=== PATIENT | male | born 1990 | race Two or more races ===

== ENCOUNTER 2024-02-11 23:03 | Emergency (ER) | payer SELFPAY ==
[2024-02-11 23:04] VITALS: BP 158/93; PULSE 83; RESP 18; TEMP 36.8; O2SAT 98; BMI 38.7
--- NOTE | 2024-02-11 23:07 | EKG_ITS ---
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
--- NOTE | 2024-02-11 23:24 | XR_ITS ---
Examination: PA lateral chest 2 views Technique: Upright PA lateral chest 2 views Exam date and time: February 11, 2024 11:42 PM Indications: Chest pain beginning one hour ago. Findings: Normal heart size Lungs are clear The osseous structures are intact Impression: No active disease
--- NOTE | 2024-02-11 23:24 | PD.EDRME ---
Rapid Medical Screening Exam RME Arrival date/time: 02/11/24 23:03 33 year old male present to Ed for c/o of chest pain for 1 day I have greeted and performed a focused initial assessment of this patient. A comprehensive ED assessment and evaluation of the patient, analysis of all test results, and completion of the medical decision making process will be conducted by additional ED providers. Chief Complaint: Chest Pain Vital signs: Vital Signs Temperature 98.3 F 02/11/24 23:04 Pulse Rate 83 02/11/24 23:04 Respiratory Rate 18 02/11/24 23:04 Blood Pressure 158/93 H 02/11/24 23:04 Pulse Oximetry (%) 98 02/11/24 23:04 Oxygen Delivery Method Room Air 02/11/24 23:04
[2024-02-12 00:14] LABS: Basophils % (Auto) 0 % (0-2.5); Eosinophils # (Auto) 0.1 Thou/mm3 (0.0-0.5); Eosinophils % (Auto) 1 % (0-10); Hematocrit 44.6 % (41.0-53.0); Hemoglobin 14.4 g/dL (13.5-16.0); Immature Granulocytes % (Auto) 0 % (0-0); Immature Granulocytes Auto 0.03 Thou/mm3 (0.00-0.00); Lymphocytes # (Auto) 3.9 Thou/mm3 (1.0-4.8); Lymphocytes % (Auto) 33 % (10-50); Mean Corpuscular HGB Conc 32.3 g/dl (31.0-37.0); Mean Corpuscular Hemoglobin 26.4 pg (25.0-35.0); Mean Corpuscular Volume 82 fL (80-100); Monocytes # (Auto) 0.8 Thou/mm3 (0.0-0.8); Monocytes % (Auto) 7 % (0-12); Neutrophils % (Auto) 59 % (37-80); Nucleated Red Blood Cell % 0 /100 WBC (0); Platelet Count 321 Thou/mm3 (140-440); RDW Standard Deviation 36.7 fL (35.1-43.9); Red Blood Count 5.46 Miln/mm3 (4.50-5.90); White Blood Count 11.8 Thou/mm3 (3.8-10.6)
[2024-02-12 00:26] LABS: Alanine Aminotransferase 30 U/L (10-49); Albumin, Serum 4.7 gm/dL (3.5-5.0); Albumin/Globulin Ratio 1.5 (1.2-2.2); Alkaline Phosphatase 60 U/L (46-116); Anion Gap 5 (7-16); Aspartate Amino Transferase 21 U/L (0-34); BUN/Creatinine Ratio 15 Ratio (12-20); Bilirubin,Total 0.4 mg/dL (0.3-1.2); Blood Urea Nitrogen 16 mg/dL (9-23); Calcium 10.3 mg/dL (8.3-10.6); Calcium (Corrected) 10.3 mg/dL (8.5-10.1); Carbon Dioxide 28.6 mMol/L (20.0-31.0); Chloride 103 mMol/L (98-107); Creatinine (Component) 1.1 mg/dL (0.6-1.3); Estimated Creatinine Clearance 124.2 mL/min (>60); Globulin 3.1 gm/dL (2.3-3.5); Glucose 94 mg/dL (74-106); Lipase 32 U/L (12-53); Magnesium 1.8 mg/dL (1.6-2.6); Osmolality,Calculated 275 (275-295); Potassium 4.2 mMol/L (3.4-5.1); Sodium 137 mMol/L (136-145); Total Protein 7.8 gm/dL (5.7-8.2); Troponin I < 0.020 ng/mL (0.0-0.045); eGFR > 60 See Note
[2024-02-12 00:54] LABS: Amphetamine/Methamp Scrn,U Negative (Negative); Barbiturate Screen,Urine Negative (Negative); Benzodiazepines Screen,Urine Negative (Negative); Benzoylecgonine Screen, Ur Negative (Negative); Fentanyl Screen,Urine Negative (Negative); Opiate Screen,Urine Negative (Negative); THC Screen,Urine Negative (Negative)
--- NOTE | 2024-02-12 01:37 | PD.EDCHEST ---
ED Chest Pain RME/HPI General Chief Complaint: Chest Pain Stated Complaint: LEFT SIDED CHEST PAIN X1HR Time Seen by Provider: 02/12/24 01:37 Arrival date/time: 02/11/24 23:03 33 year old male with past medical history of HTN present to emergency room with c/o of chest pain 1 hour ago LOCATION: Chest SEVERITY: Symptoms are described as being severe with limitations on activities of daily living CONTEXT: The patient is unable to identify any inciting events. DURATION/TIMING: The symptoms started approximately 1 hour ago ASSOCIATED SYMPTOMS: The patient is unable to identify any other associated symptoms. MODIFYING FACTORS: The patient is unable to identify any alleviating or aggravating symptoms. PERTINENT ROS: no fevers, no cough, no pleuritic pain, no ripping or tearing sensations, denies any lower extremity edema and no unilateral swelling, no shortness of breath no nausea,vomiting, diarrhea, no dizziness/headache no rash no loc/syncope episode no abd/back pain no dsyuria,urgency,frequency REVIEW OF SYSTEMS: See History of Present Illness - with the exception of those mentioned in the history of present illness, all other systems reviewed and reported as negative GENERAL: In general the patient is awake, interactive, in an emergency department gurney. HEAD/EYES/EARS/NOSE/THROAT: normo-cephalic, atraumatic, mucus membranes are moist, anicteric, palpebral conjunctiva is pink, trachea is midline. CARDIOVASCULAR: regular rate and regular rhythm, no murmurs, heart sounds are not distant, strong pulses in all four extremities that are equal and symmetric bilateral upper and lower extremities, normal capillary refill. CHEST/PULMONARY: normal chest rise and fall, good air movement, clear to auscultation bilaterally, normal inspiratory to expiratory ratios without evidence of respiratory distress. NECK: No midline/Paraspinal tenderness, no step off ROM/Strenght intact No Kernig and bruzinski sign. No trauma ABDOMEN: soft, not tender, no masses appreciated BACK: normal range of motion without pain. NEUROLOGICAL: cranio-facial features are symmetric, moves all four extremities equally without obvious limitations or weakness. EXTREMITY: no tenderness to palpation over the long bones or large joints of the bilateral upper and lower extremities, no joint swelling, no joint erythema, no signs of trauma, no unilateral leg swelling and no peripheral edema. SKIN: warm, dry, well-perfused, no jaundice, no rash, no telangiectasias or petechia. PSYCH: calm, cooperative, no evidence of psychosis or agitation RME / HPI RME / HPI narrative: 02/11/24 23:03 33 year old male present to Ed for c/o of chest pain for 1 day I have greeted and performed a focused initial assessment of this patient. A comprehensive ED assessment and evaluation of the patient, analysis of all test results, and completion of the medical decision making process will be conducted by additional ED providers. Related Data Home Medications ?Medication ?Instructions ?Recorded ?Confirmed lansoprazole 30 mg capsule,delayed 30 mg PO QDAY 06/06/19 06/06/19 release lisinopril 20 mg tablet 20 mg PO QDAY 06/06/19 06/06/19 Previous Rx's ?Medication ?Instructions ?Recorded ondansetron 4 mg disintegrating 4 mg PO Q8H #14 tabs 05/07/23 tablet Allergies Allergy/AdvReac Type Severity Reaction Status Date / Time No Known Allergies Allergy Verified 02/11/24 23:06 Course Course Course Narrative: Given History, Exam, and Workup I have low suspicion for ACS, Pneumothorax, Bacterial Pneumonia, Pulmonary Embolus, Tamponade, Aortic Dissection or other emergent problem as a cause for this presentation.? Last Stress Test:? never Last Heart Catheterization:? never HEART Score: 1-2 ? Quality Measures none Orders Category Date Time Status EKG (ED ONLY) *Do not use* NOW Care 02/11/24 23:07 Completed EKG (ED Only) Stat Exams 02/11/24 23:07 Draft XR chest 2V Stat Exams 02/11/24 23:24 Completed CBC Stat Lab 02/11/24 00:02 Completed CMP [Comprehensive Metabolic Panel] Stat Lab 02/11/24 00:02 Completed Drug Screen,Urine Stat Lab 02/11/24 00:00 Completed Lipase Stat Lab 02/11/24 00:02 Completed Mag [Magnesium] Stat Lab 02/11/24 00:02 Completed Troponin I Stat Lab 02/11/24 00:02 Completed Vital Signs Vital signs: Vital Signs Temperature 98.3 F 02/11/24 23:04 Pulse Rate 83 02/11/24 23:04 Respiratory Rate 18 02/11/24 23:04 Blood Pressure 158/93 H 02/11/24 23:04 Pulse Oximetry (%) 98 02/11/24 23:04 Oxygen Delivery Method Room Air 02/11/24 23:04 Procedures -ED EKG Interpretation #1: Date of EK02/12/24 Rate: 76 Interpretation: Reviewed by me EKG Impression: Normal sinus rhythm, No acute ST-T changes, No ectopy and No ischemic changes Chest Pain Patient data External records reviewed:: [facility] previous records Clinical information provided by:: patient Social determinants that could affect healthcare access:: none Patient has the following chronic illnesses:: HTN How is presenting disease/condition affected by chronic disease/condition?: exacerbated by Evaluation data The following diagnostics were reviewed and interpreted by me:: lab results, radiology exam(s) and EKG tracing(s) Lab and/or radiology exams considered but not ordered:: none Interpretation Summary: cxr: nad cbc/cmp/mg/trop within normal limits Medications / Prescriptions Medications or Prescriptions considered but not ordered:: none Medication administrations:: none Consultations Consultation(s) initiated? (list below): No Diagnosis Chest Pain Differential Diagnosis: pneumothorax, stable angina, atypical chest pain, st elevation myocardial infarction, costochondritis, chest pain and biliary colic Most likely diagnosis given after review of the tests above:: chest pain Admission Indicated Admission indicated?: not indicated Admission Request Was there a request for admission?: No Disposition Plan Disposition Plan: Discharge Discharge Attestation Discharge Attestation: The patient and all family members were given an opportunity to ask questions and understood the discharge instructions. Discharge instructions specifically effects, indications for sooner follow up or return to the emergency department, and the expected course of current diagnosis. Patient condition: Stable Discharge Plan Plan Patient Disposition: HOME (Self Care) Health Concerns: Follow with PMD as directed Take tylenol or motrin as need Return to ED if sx worsen Prescriptions/Referrals Prescriptions/Med Rec: No Action lisinopril 20 mg Tablet 20 mg PO QDAY lansoprazole 30 mg Capsule,Delayed Release(Dr/Ec) 30 mg PO QDAY ondansetron 4 mg tablet,disintegrating 4 mg PO Q8H Qty: 14 0RF Referrals: Randolph Upton MD [Primary Care Provider] - In 1 week Problem List Clinical Impression: Chest pain Patient/Caregiver Discharge Instructions Education Materials: ED Chest Pain, Uncertain Cause Print Language: Romanian Stand Alone Forms: Brandie Award Info., Patient Portal Info Letter MD Attestation Attestation The patient was seen by the midlevel practitioner. I, the co-signing physician, was present during the entire ER visit. While I did not physically examine the patient, I was available for consultation as needed.
[2024-02-12 01:44] VITALS: BP 137/64; PULSE 78; RESP 18; TEMP 37.1; O2SAT 99
== END 2024-02-12 01:45 | disposition home or self-care (01) ==
PROVIDERS: Physician Assistant; Emergency Provider Emergency Medicine; PCP Family Medicine
DX: R07.89 Other chest pain (principal); I49.8 Other specified cardiac arrhythmias; I10 Essential (primary) hypertension
CPT/HCPCS: 36415; 71046; 80053; 80307; 83690; 83735; 84484; 85025; 93005; 99283

== ENCOUNTER → 2024-04-23 | Outpatient (CLI) | payer BC, SELFPAY ==
[2024-04-23 13:59] LABS: Collection Type, Urine Clean Catch; Squamous Epithelial Cell,Urine 0 /hpf (0-5)
[2024-04-23 14:21] LABS: Basophils % (Auto) 0 % (0-2.5); Eosinophils % (Auto) 0 % (0-10); Hematocrit 42.9 % (41.0-53.0); Hemoglobin 14.2 g/dL (13.5-16.0); Immature Granulocytes % (Auto) 0 % (0-0); Immature Granulocytes Auto 0.03 Thou/mm3 (0.00-0.00); Lymphocytes # (Auto) 2.4 Thou/mm3 (1.0-4.8); Lymphocytes % (Auto) 27 % (10-50); Mean Corpuscular HGB Conc 33.1 g/dl (31.0-37.0); Mean Corpuscular Hemoglobin 26.5 pg (25.0-35.0); Mean Corpuscular Volume 80 fL (80-100); Monocytes # (Auto) 0.5 Thou/mm3 (0.0-0.8); Monocytes % (Auto) 6 % (0-12); Neutrophils # (Auto) 5.8 Thou/mm3 (1.8-7.7); Neutrophils % (Auto) 66 % (37-80); Nucleated Red Blood Cell % 0 /100 WBC (0); Platelet Count 381 Thou/mm3 (140-440); RDW Standard Deviation 37.2 fL (35.1-43.9); Red Blood Count 5.36 Miln/mm3 (4.50-5.90); White Blood Count 8.8 Thou/mm3 (3.8-10.6)
[2024-04-23 14:24] LABS: Bilirubin,Urine Negative (Negative); Blood,Urine Negative (Negative); Clarity,Urine Clear (Clear/Hazy); Color,Urine Lt-Yellow (Lt Yel-Yel); Glucose, Urine Negative (Negative); Ketones,Urine Negative (Negative); Leukocyte Esterase,Urine Negative (Negative); Nitrite,Urine Negative (Negative); Protein,Urine Negative (Neg - Trace); RBC,Urine 2 /hpf (0-3); Specific Gravity,Urine 1.016 (1.001-1.035); Urobilinogen,Urine Negative mg/dL (0.0-1.0); WBC,Urine < 1 /hpf (0-5)
[2024-04-23 14:31] LABS: Glucose Estimated Average 111 mg/dL (80-131); Hemoglobin A1C 5.5 % Hgb (4.8-6.0)
[2024-04-23 14:37] LABS: Ferritin 170 ng/mL (10.5-307.3)
[2024-04-23 14:48] LABS: Folate 16.83 ng/mL (>5.38); Syphilis Nonreactive (Nonreactive); Vitamin B12 687 pg/mL (211-911); Vitamin D 25 Hydroxy Total 14.6 ng/mL (7.3-40.2)
[2024-04-23 14:54] LABS: Alanine Aminotransferase 33 U/L (10-49); Albumin, Serum 4.7 gm/dL (3.5-5.0); Albumin/Globulin Ratio 1.6 (1.2-2.2); Alkaline Phosphatase 65 U/L (46-116); Anion Gap 7 (7-16); Aspartate Amino Transferase 16 U/L (0-34); BUN/Creatinine Ratio 13 Ratio (12-20); Bilirubin,Total 0.9 mg/dL (0.3-1.2); Blood Urea Nitrogen 13 mg/dL (9-23); Calcium 10.2 mg/dL (8.3-10.6); Calcium (Corrected) 10.2 mg/dL (8.5-10.1); Carbon Dioxide 28.6 mMol/L (20.0-31.0); Cardiac Risk Estimate 4.5 RATIO (4.0-6.7); Chloride 100 mMol/L (98-107); Cholesterol 170 mg/dL (132-200); Free T4 (Free Thyroxine) 1.21 ng/dL (0.89-1.76); Glucose 99 mg/dL (74-106); HDL Cholesterol 38 mg/dL (40-60); LDL Cholesterol,Calculated 101 mg/dL (0-130); Osmolality,Calculated 272 (275-295); Potassium 4.9 mMol/L (3.4-5.1); Sodium 136 mMol/L (136-145); Thyroid Stimulating Hormone 1.09 uIU/mL (0.55-4.78); Total Protein 7.7 gm/dL (5.7-8.2); Triglycerides 154 mg/dL (30-150); eGFR > 60 See Note
[2024-04-23 18:05] LABS: Chlamydia trachomatis PCR Negative (Not Detect); Neisseria Gonorrhoeae DNA PCR Negative (Not Detect); Trichomonas Negative (Negative)
[2024-04-29 06:43] LABS: HIV Ag/Ab, 4th Gen NON-REACTIVE
== END | disposition home or self-care (01) ==
LOC: COPL 13:05
PROVIDERS: PCP Student in an Organized Health Care Education/Training Program; Referring Provider Student in an Organized Health Care Education/Training Program; Visit Provider Student in an Organized Health Care Education/Training Program
DX: Z00.00 Encounter for general adult medical examination without abnormal findings (principal); G47.33 Obstructive sleep apnea (adult) (pediatric); Z11.3 Encounter for screening for infections with a predominantly sexual mode of transmission
CPT/HCPCS: 36415; 80053; 80061; 81001; 82306; 82607; 82728; 82746; 83036; 84439; 84443; 85025; 86780; 87389; 87491; 87591; 87661

== ENCOUNTER 2024-05-19 14:10 | Emergency (ER) | payer BC, SELFPAY ==
[2024-05-19 14:12] VITALS: BMI 38.7
[2024-05-19 14:13] VITALS: BP 136/78; PULSE 98; RESP 18; TEMP 36.6; O2SAT 98
--- NOTE | 2024-05-19 14:16 | EKG_ITS ---
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
--- NOTE | 2024-05-19 14:16 | XR_ITS ---
Examination: AP chest single view Technique one AP portable semiupright chest single view Exam date and time: May 19, 2024 at 1432 hrs. Comparison February 11, 2024 Indications: Onset chest pain today Findings: No significant cardiac enlargement taking into account AP projection The vasculature is mildly prominent No lobar pneumonia or pulmonary edema Impression: Mildly prominent pulmonary vasculature No lobar pneumonia or pulmonary edema
--- NOTE | 2024-05-19 14:18 | EDNOTE_ITS ---
ED General RME/HPI General Chief complaint: Chest Pain Stated complaint: CHEST PAIN Time Seen by Provider: 05/19/24 14:16 Arrival date/time: 05/19/24 14:10 CC: Chest pain HPI left anterior chest onset approximately 1 hour ago denies shortness of breath or difficulty breathing no prior history of similar events E MS state the patient had episode of nausea and vomiting was given 4 mg of Zofran en route, the patient has a history of hypertension and is hypertensive. Patient denies worsening of the symptoms with cough or taking a deep breath. Related Data Home Medications ?Medication ?Instructions ?Recorded ?Confirmed lansoprazole 30 mg capsule,delayed 30 mg PO QDAY 06/0506/06/19 release lisinopril 20 mg tablet 20 mg PO QDAY 06/06/1906/05 Previous Rx's ?Medication ?Instructions ?Recorded ondansetron 4 mg disintegrating 4 mg PO Q8H #14 tabs 0 05/07/23 tablet meloxicam 7.5 mg tablet 7.5 mg PO QDAY #10 tabs 05/04 09/25 Allergies Allergy/AdvReac Type Severity Reaction Status Date / Time No Known Allergies Allergy Verified 02/11/24 23:06 Review of Systems Review of Systems Narrative Review of Systems: GEN: No fever, no chills, no weight loss EYES: No discharge, no visual changes, no pain HEENT: No ear pain, no congestion, no sore throat PULM: No shortness of breath, no cough, no congestion CV: + chest pain, no dyspnea on exertion, no palpitations GI: No nausea, no vomiting, no diarrhea, no pain, no constipation : No frequency, no urgency, no dysuria MUSC/SKEL: No joint pain, no back pain SKIN: No rash PSYCH: No hallucinations, no depression HEME/LYMPH: No easy bleeding or bruising tendencies NEURO: No weakness, no headache Past Medical History Past Medical History CARDIAC: Positive Hypertension; Negative Congestive Heart Failure RESPIRATORY: Negative Chronic Obstructive Pulmonary Disease (COPD) GENITOURINARY: Negative Renal Disease ENDOCRINE: Negative Diabetes Mellitus Type 1 or Diabetes Mellitus Type 2 PSYCHO/SOCIAL: Positive Anxiety Social History SMOKING STATUS: Never smoker ED Exam Narrative Physical exam: [General: Morbidly obese in mild discomfort but not in any acute distress Head normocephalic HEENT: Within acceptable limits Neck is supple nontender Chest equal chest rise, site-specific tenderness to palpation at the costosternal junction midsternal the left side only no other pain reproducible with palpation in any other area of the chest. Respiratory: Clear to auscultation no wheezes crackles or rubs CV: Rate rhythm is regular no murmurs rubs or clicks Abdomen is grossly distended secondary to body habitus soft nontender no masses positive bowel sounds all 4 quadrants Back: No CVA tenderness no spinous process tenderness from cervical spine thoracic and lumbar spine Skin: Intact no petechiae rash induration ulceration or crepitus Extremities: Moving all extremity against resistance cap refill less than 2 seconds neurosensory intact Neuro: Awake alert oriented x3 Glascow coma 15 no focal deficits] Course Course Course Narrative: Chest pain is site-specific and reproducible with palpation. Chest x-ray EKG and troponin are negative patient to be discharged home I suspect is costochondritis. Quality Measures none Orders Category Date Time Status EKG (ED ONLY) *Do not use* NOW Care 05/19/24 14:17 Completed Saline [Insert IV] NOW Care 05/19/24 14:54 Active EKG (ED Only) Stat Exams 05/19/24 14:16 Draft XR chest 1V Stat Exams 05/19/24 14:16 Completed Troponin I Stat Lab 05/19/24 15:00 Completed Ketorolac Inj [Toradol Inj] Med 05/19/24 14:54 Discontinued 30 mg IVP X1 ONE Vital Signs Vital signs: Vital Signs Temperature 97.9 F 05/19/24 14:13 Pulse Rate 98 05/19/24 14:13 Respiratory Rate 18 05/19/24 14:13 Blood Pressure 136/78 H 05/19/24 14:13 Pulse Oximetry (%) 98 05/19/24 14:13 Oxygen Delivery Method Room Air 05/19/24 14:13 [facility] Patient data External records reviewed:: [facility] previous records and EMS form Clinical information provided by:: EMS Social determinants that could affect healthcare access:: none Patient has the following chronic illnesses:: Hypertension obesity How is presenting disease/condition affected by chronic disease/condition?: exacerbated by Evaluation data The following diagnostics were reviewed and interpreted by me:: lab results, radiology exam(s) and EKG tracing(s) Lab and/or radiology exams considered but not ordered:: EKG performed at 1441 shows a ventricular rate of 81 [place] interval 135 QRS of 108 QTc of 407 is normal sinus rhythm nonspecific ST segment changes. No old EKG for comparison. Chest x-ray as interpreted by me read by radiology as negative for any acute finding requires emergent immediate intervention. Interpretation Summary: Costochondritis Medications Medications considered but not ordered:: None Medication administrations:: Medication Administration History Discontinued Medications Ketorolac Tromethamine (Ketorolac Inj 30 Mg/Ml Vial) 30 mg IVP X1 ONE Stop: 05/19/24 14:55 Last Admin: 05/19/24 15:11 Dose: 30 mg Documented By: DB None Consultations Consultation(s) initiated? (list below): No Diagnosis Differential Diagnosis ED Complaint MDM: ACS ME pneumonia Most likely diagnosis given after review of the tests above:: Costochondritis Admission Indicated Admission indicated?: not indicated Explain why admission is indicated or not indicated:: Stable for outpatient follow-up Admission Request Was there a request for admission?: No Disposition Plan Disposition Plan: Discharge Discharge Attestation Discharge Attestation: The patient and all family members were given an opportunity to ask questions and understood the discharge instructions. Discharge instructions specifically effects, indications for sooner follow up or return to the emergency department, and the expected course of current diagnosis. Patient condition: Stable Medical Decision Making Differential Diagnosis Differential Diagnosis: ACS ME pneumonia Lab Data Labs: Lab Results 05/19/24 Range/Units 15:00 Troponin I < 0.020 (0.0-0.045) ng/mL Discharge Plan Plan Patient Disposition: HOME (Self Care) Patient condition on transfer: Stable Prescriptions/Referrals Prescriptions/Med Rec: New meloxicam 7.5 mg tablet 7.5 mg PO QDAY Qty: 10 0RF No Action lisinopril 20 mg Tablet 20 mg PO QDAY lansoprazole 30 mg Capsule,Delayed Release(Dr/Ec) 30 mg PO QDAY ondansetron 4 mg tablet,disintegrating 4 mg PO Q8H Qty: 14 0RF Problem List Clinical Impression: Costochondritis Patient/Caregiver Discharge Instructions Other Activity Instructions:: Take the medications as needed for pain follow-up with your primary care provider. If there is worsening symptoms return the emergency room immediately for further evaluation. Education Materials: ED Chest Wall Pain, Costochondritis Print Language: Chilean Stand Alone Forms: Brandie Award Info., Patient Portal Info Letter, Work/School Release PA/ELEMENTARY ASSISTANT PRINCIPAL Supervising Physician MIRTA/ELEMENTARY ASSISTANT PRINCIPAL Supervising Physician: Endy Ricci ENP
[2024-05-19 14:30] VITALS: PULSE 108; RESP 16; O2SAT 99; BMI 38.7
[2024-05-19] MEDS: KETOROLAC INJ 30 MG/ML VIAL IVP (15:11)
[2024-05-19 15:36] LABS: Troponin I < 0.020 ng/mL (0.0-0.045)
[2024-05-19 16:10] VITALS: BP 124/75; PULSE 70; RESP 19; TEMP 36.6; O2SAT 97
[2024-05-19 16:38] VITALS: BP 124/65; PULSE 72; RESP 18; TEMP 36.6; O2SAT 99
== END 2024-05-19 16:35 | disposition home or self-care (01) ==
LOC: SERX 18:49
PROVIDERS: Registered Nurse General Practice; Emergency Provider Emergency Medicine
DX: M94.0 Chondrocostal junction syndrome [Tietze] (principal); I10 Essential (primary) hypertension
CPT/HCPCS: 36415; 71045; 84484; 93005; 96374; 99284; J1885

== ENCOUNTER 2024-07-15 04:14 | Emergency (ER) | payer BC, SELFPAY ==
[2024-07-15 04:15] VITALS: BMI 40.1
[2024-07-15 04:31] VITALS: BP 125/81; PULSE 85; RESP 18; TEMP 36.4; O2SAT 95
--- NOTE | 2024-07-15 04:43 | XR_ITS ---
Examination: PA lateral chest 2 views Technique: Upright PA lateral chest 2 views Exam date and time: July 15, 2024 0448 hrs. Comparison May 19, 2024 Indications: Tachycardia today. Findings: Normal heart size Lungs are clear. The osseous structures are intact Impression: No active disease
--- NOTE | 2024-07-15 04:44 | PD.EDRME ---
Rapid Medical Screening Exam RME Arrival date/time: 07/15/24 04:14 34 yo m present to Ed for c/o of elevated hr and bp I have greeted and performed a focused initial assessment of this patient. A comprehensive ED assessment and evaluation of the patient, analysis of all test results, and completion of the medical decision making process will be conducted by additional ED providers. Chief Complaint: Chest Pain Time Seen by Provider: 07/15/24 04:30 Vital signs: Vital Signs Temperature 97.6 F 07/15/24 04:31 Pulse Rate 85 07/15/24 04:31 Respiratory Rate 18 07/15/24 04:31 Blood Pressure 125/81 07/15/24 04:31 Pulse Oximetry (%) 95 07/15/24 04:31 Oxygen Delivery Method Room Air 07/15/24 04:31
--- NOTE | 2024-07-15 05:41 | PRELIM_ITS ---
Radiographs of the chest (2 views). July 15, 2024 at 0447 hours Clinical history: Rapid hr. Comparison: No prior study is available for comparison. Findings: The lungs are clear. There is no evidence of pleural effusion or pneumothorax. The cardiomediastinal silhouette is normal. The bones are unremarkable for age. Impression: Normal chest. Report Electronically Signed By: Kyle Sanchez 07/15/2024 5:40:40 AM [EST]
[2024-07-15 06:21] LABS: Basophils % (Auto) 0 % (0-2.5); Eosinophils # (Auto) 0.1 Thou/mm3 (0.0-0.5); Eosinophils % (Auto) 1 % (0-10); Hematocrit 41.8 % (41.0-53.0); Hemoglobin 13.5 g/dL (13.5-16.0); Immature Granulocytes % (Auto) 0 % (0-0); Immature Granulocytes Auto 0.03 Thou/mm3 (0.00-0.00); Lymphocytes # (Auto) 3.8 Thou/mm3 (1.0-4.8); Lymphocytes % (Auto) 36 % (10-50); Mean Corpuscular HGB Conc 32.3 g/dl (31.0-37.0); Mean Corpuscular Hemoglobin 26.4 pg (25.0-35.0); Mean Corpuscular Volume 82 fL (80-100); Monocytes # (Auto) 1.1 Thou/mm3 (0.0-0.8); Monocytes % (Auto) 10 % (0-12); Neutrophils # (Auto) 5.6 Thou/mm3 (1.8-7.7); Neutrophils % (Auto) 52 % (37-80); Nucleated Red Blood Cell % 0 /100 WBC (0); Platelet Count 354 Thou/mm3 (140-440); RDW Standard Deviation 36.6 fL (35.1-43.9); Red Blood Count 5.11 Miln/mm3 (4.50-5.90); White Blood Count 10.6 Thou/mm3 (3.8-10.6)
[2024-07-15 06:44] LABS: Alanine Aminotransferase 35 U/L (10-49); Albumin, Serum 4.5 gm/dL (3.5-5.0); Albumin/Globulin Ratio 1.5 (1.2-2.2); Alkaline Phosphatase 53 U/L (46-116); Anion Gap 8 (7-16); Aspartate Amino Transferase 18 U/L (0-34); BUN/Creatinine Ratio 17 Ratio (12-20); Bilirubin,Total 0.6 mg/dL (0.3-1.2); Blood Urea Nitrogen 19 mg/dL (9-23); Calcium 9.5 mg/dL (8.3-10.6); Calcium (Corrected) 9.5 mg/dL (8.5-10.1); Carbon Dioxide 27.2 mMol/L (20.0-31.0); Chloride 102 mMol/L (98-107); Creatinine (Component) 1.1 mg/dL (0.6-1.3); Estimated Creatinine Clearance 125.4 mL/min (>60); Glucose 95 mg/dL (74-106); Lipase 29 U/L (12-53); Osmolality,Calculated 276 (275-295); Potassium 4.2 mMol/L (3.4-5.1); Sodium 137 mMol/L (136-145); Thyroid Stimulating Hormone 2.31 uIU/mL (0.55-4.78); Total Protein 7.5 gm/dL (5.7-8.2); Troponin I < 0.020 ng/mL (0.0-0.045); eGFR > 60 See Note
[2024-07-15 07:02] LABS: B-Type Natriuretic Peptide < 20 pg/mL (0-100)
[2024-07-15 08:08] VITALS: BP 114/65; PULSE 79; RESP 18; TEMP 36.6; O2SAT 99
--- NOTE | 2024-07-15 08:13 | PD.EDCHEST ---
ED Chest Pain RME/HPI General Chief Complaint: Chest Pain Stated Complaint: chest pain Time Seen by Provider: 07/15/24 04:30 Arrival date/time: 07/15/24 04:14 RME / HPI RME / HPI narrative: 07/15/24 04:14 34 yo m present to Ed for c/o of elevated hr and bp I have greeted and performed a focused initial assessment of this patient. A comprehensive ED assessment and evaluation of the patient, analysis of all test results, and completion of the medical decision making process will be conducted by additional ED providers. DR. STEPHEN MAIN ED EVALUATION: 34 year old male with past medical history significant for GERD on omeprazole and hypertension presents to the Emergency Department with complaint of left-sided chest pain onset 0300 hours, while at work. Denies any injury. Pain is constant, described as dull and rated mild to moderate in severity. No radiation reported at this time. Breathing does not exacerbate the pain. No cough. No fevers or chills. No nausea, vomiting, diarrhea, or constipation. Related Data Home Medications ?Medication ?Instructions ?Recorded ?Confirmed lansoprazole 30 mg capsule,delayed 30 mg PO QDAY 06/06/19 06/06/19 release lisinopril 20 mg tablet 20 mg PO QDAY 06/06/19 06/06/19 Previous Rx's ?Medication ?Instructions ?Recorded ondansetron 4 mg disintegrating 4 mg PO Q8H #14 tabs 05/07/23 tablet meloxicam 7.5 mg tablet 7.5 mg PO QDAY #10 tabs 05/19/24 Allergies Allergy/AdvReac Type Severity Reaction Status Date / Time No Known Allergies Allergy Verified 07/15/24 04:19 Review of Systems Review of Systems Systems Reviewed: All systems reviewed, normal except as documented Past Medical History Past Medical History CARDIAC: Positive Hypertension PSYCHO/SOCIAL: Positive Anxiety (non-medicated) Social History SMOKING STATUS: Never smoker SUBSTANCE USE: does not use ALCOHOL: Never ED Exam Narrative Physical exam: GENERAL APPEARANCE: alert and oriented x 4, well-developed, well-nourished, no acute distress VITALS: All vitals were reviewed and the pulse ox is 99% on room air, which is normal according to my interpretation. HEENT: Normocephalic, atraumatic; pupils equal, round, reactive to light; EOMI; mucous membranes pink, moist; oropharynx clear NECK: Supple LUNGS: CTABL; no wheezes, no rales, no rhonchi HEART: Regular rate, regular rhythm; normal S1, S2; no murmurs ABDOMEN: non distended; normal BS; there is left upper quadrant tenderness; no rebound; no masses, no organomegaly, no hernia BACK: no CVA tenderness EXTREMITIES: atraumatic; no edema NEUROLOGIC: awake; alert and oriented x4; cranial nerves II-XII grossly intact; no focal sensory or motor deficits PSYCHIATRIC: appropriate mood and affect SKIN: warm, dry, normal color; no rashes Course Quality Measures none Orders Category Date Time Status EKG (ED ONLY) *Do not use* NOW Care 07/15/24 04:37 Completed EKG (ED Only) Stat Exams 07/15/24 04:37 Ordered XR chest 2V Stat Exams 07/15/24 04:43 Completed BNP [B-Type Natriuretic Peptide] Stat Lab 07/15/24 06:03 Completed CBC Stat Lab 07/15/24 06:03 Completed CMP [Comprehensive Metabolic Panel] Stat Lab 07/15/24 06:03 Completed Lipase Stat Lab 07/15/24 06:03 Completed Mag [Magnesium] Stat Lab 07/15/24 06:03 Completed TSH [Thyroid Stimulating Hormone] Stat Lab 07/15/24 06:03 Completed Troponin I Stat Lab 07/15/24 06:03 Completed Vital Signs Vital signs: Vital Signs Temperature 97.6 F 07/15/24 04:31 Pulse Rate 85 07/15/24 04:31 Respiratory Rate 18 07/15/24 04:31 Blood Pressure 125/81 07/15/24 04:31 Pulse Oximetry (%) 95 07/15/24 04:31 Oxygen Delivery Method Room Air 07/15/24 04:31 Chest Pain MDM Narrative MDM Narrative:: Jenelle Campbell am scribing for and in the presence of Dr. Stephen. Patient data External records reviewed:: [facility] previous records (Reviewed last ED visit dated 05/19/24, discharged with the following: Costochondritis) Clinical information provided by:: patient Social determinants that could affect healthcare access:: none Patient has the following chronic illnesses:: GERD on omeprazole and hypertension How is presenting disease/condition affected by chronic disease/condition?: exacerbated by Evaluation data The following diagnostics were reviewed and interpreted by me:: lab results, radiology exam(s) and EKG tracing(s) (EKG#1: EKG at 0428 hours. Interpreted by me: sinus rhythm, rate 78, no acute ischemic changes) Lab and/or radiology exams considered but not ordered:: none Interpretation Summary: Procedure(s): XR chest 2V Accession Number(s): [id number] cc: David Acuña MD; NO PRIMARY/FAMILY,PHYSICIAN; Ovidio Johnston PA-C~ Examination: PA lateral chest 2 views Technique: Upright PA lateral chest 2 views Exam date and time: July 15, 2024 0448 hrs. Comparison May 19, 2024 Indications: Tachycardia today. Findings: Normal heart size Lungs are clear. The osseous structures are intact Impression: No active disease Dictated By: David Acuña MD Medications / Prescriptions Medications or Prescriptions considered but not ordered:: none Medication administrations:: none Consultations Consultation(s) initiated? (list below): No Diagnosis Chest Pain Differential Diagnosis: atypical chest pain, costochondritis, chest pain and biliary colic Most likely diagnosis given after review of the tests above:: Atypical chest pain Gastritis Admission Indicated Admission indicated?: not indicated Admission Request Was there a request for admission?: No Disposition Plan Disposition Plan: Discharge Discharge Attestation Discharge Attestation: The patient and all family members were given an opportunity to ask questions and understood the discharge instructions. Discharge instructions specifically effects, indications for sooner follow up or return to the emergency department, and the expected course of current diagnosis. Patient condition: Stable Discharge Plan Plan Patient Disposition: HOME (Self Care) Prescriptions/Referrals Prescriptions/Med Rec: No Action lisinopril 20 mg Tablet 20 mg PO QDAY lansoprazole 30 mg Capsule,Delayed Release(Dr/Ec) 30 mg PO QDAY meloxicam 7.5 mg tablet 7.5 mg PO QDAY Qty: 10 0RF ondansetron 4 mg tablet,disintegrating 4 mg PO Q8H Qty: 14 0RF Referrals: No Primary/Family,Physician [Primary Care Provider] - In 1 week Problem List Clinical Impression: Atypical chest pain, Gastritis Patient/Caregiver Discharge Instructions Education Materials: ED Chest Pain, Uncertain Cause, ED Gastritis (Adult) Print Language: Palestinian Stand Alone Forms: Brandie Award Info., Patient Portal Info Letter
== END 2024-07-15 08:37 | disposition home or self-care (01) ==
PROVIDERS: Physician Assistant; Emergency Provider Emergency Medicine
DX: R07.89 Other chest pain (principal); K29.70 Gastritis, unspecified, without bleeding; I10 Essential (primary) hypertension; K21.9 Gastro-esophageal reflux disease without esophagitis
CPT/HCPCS: 36415; 71046; 80053; 83690; 83735; 83880; 84443; 84484; 85025; 93005; 99283

== ENCOUNTER 2024-07-31 16:04 | Emergency (ER) | payer BC, SELFPAY ==
--- NOTE | 2024-07-31 16:12 | EDNOTE_ITS ---
ED Chest Pain RME/HPI General Chief Complaint: Chest Pain Stated Complaint: CHEST PAIN Time Seen by Provider: 07/31/24 16:14 Arrival date/time: 07/31/24 16:04 RME / HPI RME / HPI narrative: 34 year old male with a history of hypertension and anxiety presents to the ED BIBA for evaluation of acute chest pain. The patient reports that the pain began suddenly around 3:30 PM while standing in line at a store. He describes the pain as a central, crushing pressure sensation without radiation, and rates it as moderate. Accompanied by palpitations. He notes a history of similar, less severe chest pain in the past, which was attributed to a ?stomach problem,? but this episode felt more intense. Per medics report, the patient was found to be tachycardic in the 180s on telemetry and was given 1 sublingual nitroglycerin, 1 nitro paste, and 162 mg of aspirin en route. The patient denies any known cardiac history and reports no recent strenuous physical activity. Related Data Home Medications ?Medication ?Instructions ?Recorded ?Confirmed lansoprazole 30 mg capsule,delayed 30 mg PO QDAY 06/0506/06/19 release lisinopril 20 mg tablet 20 mg PO QDAY 06/06/1906/05 Previous Rx's ?Medication ?Instructions ?Recorded ondansetron 4 mg disintegrating 4 mg PO Q8H #14 tabs 0 05/07/23 tablet meloxicam 7.5 mg tablet 7.5 mg PO QDAY #10 tabs 05/04 09/25 Allergies Allergy/AdvReac Type Severity Reaction Status Date / Time No Known Allergies Allergy Verified 07/15/24 04:19 Review of Systems Review of Systems Narrative Review of Systems: Constitutional: DENIES; Fevers Eyes: DENIES; Loss of vision Head/Ear/Nose: DENIES; Loss of hearing Throat: DENIES; Dysphagia Cardiovascular: SEE HPI Respiratory: DENIES; Shortness of breath Gastrointestinal: DENIES; Rectal bleeding or melena. Genitourinary: DENIES; Dysuria (painful or difficult urination) Musculoskeletal: DENIES; Arthralgia (pain in a joint),; Skin: DENIES; Rash Neurological: DENIES; Loss of function or movement Psychiatric: DENIES; recent major life stressor, emotional problem, illicit drug use or abuse Endocrinology: DENIES; Weight change Hematologic/Lymphatic: DENIES; Abnormal bruising Allergic/Immunologic: DENIES; Urticaria (hives) Past Medical History Past Medical History CARDIAC: Positive Hypertension; Negative Congestive Heart Failure RESPIRATORY: Negative Chronic Obstructive Pulmonary Disease (COPD) GENITOURINARY: Negative Renal Disease ENDOCRINE: Negative Diabetes Mellitus Type 1 or Diabetes Mellitus Type 2 PSYCHO/SOCIAL: Positive Anxiety (non-medicated) Social History SMOKING STATUS: Never smoker SUBSTANCE USE: does not use ED Exam Narrative Physical exam: Physical Exam: General: The vital signs were reviewed. The patient is non-toxic, in no apparent distress and appears healthy with a patent airway, no respiratory distress and has no apparent circulatory problems. Head & Scalp: Normocephalic, atraumatic. Face: Appears normal and is without lesions, deformity. Ears: Left external pinna appears normal. Right external pinna appears normal. Eyes: The sclera is anicteric. No obvious photophobia. The Left and Right Orbit/Lid/Conjunctiva appears normal without swelling, discoloration or injection. Nose: The nose is without deformity, discharge or tenderness; Throat: Appears normal. The mucous membranes are pink and moist without exudates, redness or mass seen. The tongue appears normal. Neck: The neck is supple and no apparent mass or adenopathy. Chest: The chest wall is normal in size and symmetry and has no chest wall tenderness or crepitus. The patient displays normal ventilator effort without retractions, accessory muscle use and has adequate air movement bilaterally with no wheezes and no rales. Cardiovascular: Regular rate and rhythm; No murmurs, rubs, or gallops; Gastrointestinal: The abdomen appears normal. No obvious hernias or mass. The abdomen is soft and benign, non-distended, with no pain, no guarding and no rebound tenderness. Bowel sounds are present and normal sounding. No CVA tenderness. Genitourinary: Back/Spine: Normal inspection Extremities/Musculoskeletal/lymphatic: The bilateral upper and lower extremities are warm. There is no evidence of arterial insufficiency. There is no evidence of venous insufficiency/edema. The patient spontaneously moves bilateral upper and lower extremities with no pain and no limitation of movement. There is no apparent, injury or trauma. Skin: The skin is warm, dry and intact. No rashes. No petechia. No purpura. No abnormal bruising. The color is appropriate with no cyanosis. Mental status/Psychiatric: Mental status is appropriate for age. The patient has no apparent delusions, visual hallucinations, no apparent audible hallucinations. The patient has no apparent suicidal thoughts/ideation and no apparent homicidal thoughts/ideation. Neurological: The patient is awake, alert, interactive, cordial, cooperative and is gilma ented to name and situation. The patient follows commands and answers historical question with no impairment. There is no visual disturbance apparent. The pupils are equal and reactive bilaterally with normal eye movements and no diplopia The bilateral upper and lower extremities have normal strength, normal range of motion and normal functioning. The gait, station and balance appear to be baseline with no acute change Course Course Course Narrative: chest xray ordered to help determine etiology of chest pain. Quality Measures none Orders Category Date Time Status EKG (ED ONLY) *Do not use* NOW Care 07/31/24 16:15 Completed EKG (ED Only) Stat Exams 07/31/24 16:15 Draft XR chest 1V portable Stat Exams 07/31/24 16:15 Completed B-Type Natriuretic Peptide Stat Lab 07/31/24 16:54 Completed CBC Stat Lab 07/31/24 16:54 Completed Comprehensive Metabolic Panel Stat Lab 07/31/24 16:54 Completed D-Dimer Stat Lab 07/31/24 18:16 Ordered Drug Screen,Urine Stat Lab 07/31/24 16:15 Ordered Lipase Stat Lab 07/31/24 16:54 Completed Magnesium Stat Lab 07/31/24 16:54 Completed Troponin I Stat Lab 07/31/24 16:54 Completed Troponin I Stat Lab 07/31/24 19:30 Ordered Urinalysis Stat Lab 07/31/24 16:15 Ordered Urinalysis, C/S if Indicated Stat Lab 07/31/24 16:15 Ordered mg Hyd/Al Hyd/Hemalatha Susp [Maalox Susp] Med 07/31/24 18:15 Once 30 ml PO X1 ONE Vital Signs Vital signs: Vital Signs Temperature 97.8 F 07/31/24 16:24 Pulse Rate 104 H 07/31/24 16:24 Respiratory Rate 18 07/31/24 16:24 Blood Pressure 145/72 H 07/31/24 16:24 Pulse Oximetry (%) 93 L 07/31/24 16:24 Oxygen Delivery Method Room Air 07/31/24 16:24 Pulse ox is 93% on room air which is borderline low. Chest Pain MDM Narrative MDM Narrative:: Patient is a 34-year-old who had sudden onset of left-sided chest pain. Found his heart to going fast at 180 initially felt this was an SVT but treated for chest pain protocol because heart rate came down to the 130s fairly quickly. Review of the chart reveals has been here for what was described as GERD and musculoskeletal chest wall pain. Patient has never had any procedure done to di agnose heart has no known heart disease will initiate a medical workup and see will be fine. Patient was observed in the department and his pulse rate came down to the 80s and 90s on the monitor with sinus rhythm. His white cell count was normal at 7.4 hemoglobin 13.7 rest the CBC is unremarkable. Electrolytes are normal BUN 15 creatinine 1.0 AST ALT were normal total bilirubin normal troponin came back negative BNP was negative Chest x-ray read by myself reveals normal heart silhouette there is no infiltrates no effusion normal soft tissue's Went back in the room had a long discussion patient still anxious and feeling a pressure tightness in his chest. It is not pleuritic it is not palpable initial workup is negative we will going get a second troponin get a D-dimer try some Maalox and reevaluate after those come back. Care of this patient will go to my oncoming partner who just arrived and will assume care at 1812 hrs. also will get a second EKG. Patient data External records reviewed:: [facility] previous records (I reviewed ED visit on 07/15/2024 ) and EMS form Clinical information provided by:: patient and EMS Social determinants that could affect healthcare access:: mental health (anxiety ) Patient has the following chronic illnesses:: Hypertension, anxiety How is presenting disease/condition affected by chronic disease/condition?: exacerbated by Evaluation data The following diagnostics were reviewed and interpreted by me:: lab results, radiology exam(s) and EKG tracing(s) (EKG @ 17:17. Sinus rhythm, rate 87, no STEMI. ) Lab and/or radiology exams considered but not ordered:: None Interpretation Summary: As noted above Medications / Prescriptions Medications or Prescriptions considered but not ordered:: None Medication administrations:: See above Consultations Consultation(s) initiated? (list below): No Diagnosis Chest Pain Differential Diagnosis: stable angina, unstable angina pectoris, atypical chest pain, st elevation myocardial infarction, costochondritis, chest pain and biliary colic Most likely diagnosis given after review of the tests above:: Chest pain Admission Indicated Admission indicated?: not indicated Explain why admission is indicated or not indicated:: Patient signed out to Dr. Majano. Admission Request Was there a request for admission?: No Disposition Plan Disposition Plan: other (specify) (Patient signed out to Dr. Majano. ) Discharge Plan Prescriptions/Referrals Prescriptions/Med Rec: No Action lisinopril 20 mg Tablet 20 mg PO QDAY lansoprazole 30 mg Capsule,Delayed Release(Dr/Ec) 30 mg PO QDAY meloxicam 7.5 mg tablet 7.5 mg PO QDAY Qty: 10 0RF ondansetron 4 mg tablet,disintegrating 4 mg PO Q8H Qty: 14 0RF Referrals: Edison Becerril MD [Primary Care Provider] - In 1 week Problem List Clinical Impression: Chest pain Patient/Caregiver Discharge Instructions Print Language: Lao
--- NOTE | 2024-07-31 16:15 | EKG_ITS ---
[facility] Test Date: 2024-07-31 Pat Name: YOLA ESPINAL Department: Room: - Gender: Male Automotive General Sales Manager: : 1990 Requested By: Garret Cabrera Order Number: [id number] Reading MD: Garret Cabrera Measurements Intervals [place] Rate: 87 P: 50 NH: 138 QRS: 39 QRSD: 106 T: 23 QT: 362 QTc: 437 Interpretive Statements SINUS RHYTHM Compared to ECG 05/19/2024 14:41:12 ST (T wave) deviation no longer present /store/S0/[id number].pdf
--- NOTE | 2024-07-31 16:15 | XR_ITS ---
Examination: AP chest single view TECHNIQUE: AP portable upright chest single view. Exam date and time: July 31, 2024, 1646 hours INDICATIONS: Chest pain today. FINDINGS: Minimal prominence left ventricle No pneumonia or pulmonary edema. The osseous structures are intact. IMPRESSION: No active disease
[2024-07-31 16:24] VITALS: BP 145/72; PULSE 104; RESP 18; TEMP 36.6; O2SAT 93; BMI 40.1
[2024-07-31 16:47] VITALS: PULSE 105; RESP 18; O2SAT 93
[2024-07-31 17:13] LABS: Basophils % (Auto) 0 % (0-2.5); Eosinophils # (Auto) 0.1 Thou/mm3 (0.0-0.5); Eosinophils % (Auto) 1 % (0-10); Hematocrit 41.5 % (41.0-53.0); Hemoglobin 13.7 g/dL (13.5-16.0); Immature Granulocytes % (Auto) 0 % (0-0); Immature Granulocytes Auto 0.02 Thou/mm3 (0.00-0.00); Lymphocytes # (Auto) 2.3 Thou/mm3 (1.0-4.8); Lymphocytes % (Auto) 30 % (10-50); Mean Corpuscular Hemoglobin 26.6 pg (25.0-35.0); Mean Corpuscular Volume 81 fL (80-100); Monocytes # (Auto) 0.6 Thou/mm3 (0.0-0.8); Monocytes % (Auto) 9 % (0-12); Neutrophils # (Auto) 4.5 Thou/mm3 (1.8-7.7); Neutrophils % (Auto) 60 % (37-80); Nucleated Red Blood Cell % 0 /100 WBC (0); Platelet Count 317 Thou/mm3 (140-440); RDW Standard Deviation 34.8 fL (35.1-43.9); Red Blood Count 5.15 Miln/mm3 (4.50-5.90); White Blood Count 7.4 Thou/mm3 (3.8-10.6)
[2024-07-31 17:33] LABS: B-Type Natriuretic Peptide < 20 pg/mL (0-100)
[2024-07-31 17:34] LABS: Alanine Aminotransferase 33 U/L (10-49); Albumin, Serum 4.2 gm/dL (3.5-5.0); Albumin/Globulin Ratio 1.4 (1.2-2.2); Alkaline Phosphatase 64 U/L (46-116); Anion Gap 8 (7-16); Aspartate Amino Transferase 22 U/L (0-34); BUN/Creatinine Ratio 15 Ratio (12-20); Bilirubin,Total 0.3 mg/dL (0.3-1.2); Blood Urea Nitrogen 15 mg/dL (9-23); Calcium 9.3 mg/dL (8.3-10.6); Calcium (Corrected) 9.3 mg/dL (8.5-10.1); Carbon Dioxide 25.6 mMol/L (20.0-31.0); Chloride 104 mMol/L (98-107); Glucose 105 mg/dL (74-106); Lipase 29 U/L (12-53); Magnesium 1.8 mg/dL (1.6-2.6); Osmolality,Calculated 276 (275-295); Sodium 138 mMol/L (136-145); Total Protein 7.2 gm/dL (5.7-8.2); Troponin I < 0.002 ng/mL (0.0-0.045); eGFR > 60 See Note
[2024-07-31 18:11] VITALS: BP 114/61; PULSE 73; RESP 12; TEMP 36.6; O2SAT 95
--- NOTE | 2024-07-31 18:27 | EKG_ITS ---
[facility] Test Date: 2024-07-31 Pat Name: YOLA ESPINAL Department: Room: - Gender: Male Squad Leader: : 1990 Requested By: Garret Cabrera Order Number: [id number] Reading MD: Garret Cabrera Measurements Intervals [place] Rate: 76 P: 41 ME: 139 QRS: 48 QRSD: 102 T: 24 QT: 365 QTc: 410 Interpretive Statements SINUS RHYTHM Compared to ECG 07/31/2024 17:17:00 No significant changes /store/S0/[id number]/ecg/[id number].pdf
--- NOTE | 2024-07-31 18:28 | PD.EDADDENDU ---
Emergency Room Addendum Addendum Narrative: 1800: Care assumed from Dr. Cabrera the previous shift emergency physician. Past medical, surgical, social and family history reviewed. Vitals and home medications reviewed. Results and treatment plan discussed. I will assume the care of the patient at this time and will follow the patient, pending repeat troponin, D-Dimer, and repeat EKG. Please refer to the emergency department record for history and examination from initial visit. 2nd EKG done at 1833, NSR, rate of 76, normal intervals, normal axis, no acute ST or T-wave changes, no acute ischemia, according to my interpretation. 2102: D-Dimer is negative. Initial and Repeat troponins are within normal limits. Discussed results with the patient at bedside. He is comfortable and in no acute distress. Patient is stable to be discharged home.
[2024-07-31] MEDS: MG HYD/AL HYD/SIME (Maalox Reg) SUSP 30 ML UDC PO (18:31)
[2024-07-31 18:46] LABS: Collection Type, Urine Clean Catch; RBC,Urine 0 /hpf (0-3); WBC,Urine 0 /hpf (0-5)
[2024-07-31 19:13] LABS: Bacteria,Urine Rare; Bilirubin,Urine Negative (Negative); Blood,Urine Negative (Negative); Clarity,Urine Clear (Clear/Hazy); Color,Urine Lt-Yellow (Lt Yel-Yel); Culture Indicated,Urine Not Indicated; Glucose, Urine Negative (Negative); Ketones,Urine Negative (Negative); Leukocyte Esterase,Urine Negative (Negative); Nitrite,Urine Negative (Negative); PH,Urine 7.5 (5.0-7.0); Protein,Urine Negative (Neg - Trace); Squamous Epithelial Cell,Urine < 1 /hpf (0-5); Urobilinogen,Urine Negative mg/dL (0.0-1.0)
[2024-07-31 19:22] LABS: D-Dimer < 250 ng/mL (<600)
[2024-07-31 20:44] VITALS: BP 123/69; PULSE 75; RESP 18; O2SAT 97
[2024-07-31 20:47] LABS: Troponin I < 0.020 ng/mL (0.0-0.045)
[2024-07-31 21:32] LABS: Amphetamine/Methamp Scrn,U Negative (Negative); Barbiturate Screen,Urine Negative (Negative); Benzodiazepines Screen,Urine Negative (Negative); Benzoylecgonine Screen, Ur Negative (Negative); Fentanyl Screen,Urine Negative (Negative); Opiate Screen,Urine Negative (Negative); THC Screen,Urine Negative (Negative)
== END 2024-07-31 21:20 | disposition home or self-care (01) ==
PROVIDERS: Emergency Medicine; Emergency Provider Emergency Medicine; PCP Student in an Organized Health Care Education/Training Program
DX: R07.9 Chest pain, unspecified (principal); I10 Essential (primary) hypertension; F41.9 Anxiety disorder, unspecified
CPT/HCPCS: 36415; 71045; 80053; 80307; 81001; 83690; 83735; 83880; 84484; 85025; 85379; 93005; 99283; A9270

== ENCOUNTER 2024-09-03 12:56 | Emergency (ER) | payer BC, SELFPAY ==
[2024-09-03 12:56] VITALS: BMI 40.1
--- NOTE | 2024-09-03 13:00 | EKG_ITS ---
[facility] Test Date: 2024-09-03 Pat Name: YOLA ESPINAL Department: Room: - Gender: Male Shelter Case Manager: : 1990 Requested By: Wade Ramírez (HUYEN) Order Number: [id number] Reading MD: Wade Ramírez (RETURNING OFFICER) Measurements Intervals [place] Rate: 92 P: 33 [place]: 139 QRS: 26 QRSD: 108 T: 18 QT: 351 QTc: 435 Interpretive Statements SINUS RHYTHM Compared to ECG 07/31/2024 18:33:54 No significant changes /store/S0/[id number]/ecg/[id number].pdf
[2024-09-03 13:04] VITALS: BP 147/84; PULSE 116; RESP 18; TEMP 36.6; O2SAT 99
--- NOTE | 2024-09-03 13:04 | XR_ITS ---
Examination: AP chest single view TECHNIQUE: AP portable semiupright chest single view Date and time: September 03, 2024 1347 hours INDICATIONS: Onset acute chest pain today. FINDINGS: Normal heart size Lungs are clear. The osseous structures are intact IMPRESSION: No active disease
[2024-09-03] MEDS: ONDANSETRON INJ 2 MG/ML INJ 2 ML 4 MG IVP (13:28)
[2024-09-03] MEDS: SODIUM CHLORIDE 0.9% 1000 ML 1,000 ML 999 ML IV (13:28)
[2024-09-03 13:48] LABS: Basophils % (Auto) 0 % (0-2.5); Eosinophils % (Auto) 0 % (0-10); Hematocrit 42.4 % (41.0-53.0); Hemoglobin 13.9 g/dL (13.5-16.0); Immature Granulocytes % (Auto) 0 % (0-0); Immature Granulocytes Auto 0.02 Thou/mm3 (0.00-0.00); Lymphocytes # (Auto) 2.2 Thou/mm3 (1.0-4.8); Lymphocytes % (Auto) 29 % (10-50); Mean Corpuscular HGB Conc 32.8 g/dl (31.0-37.0); Mean Corpuscular Hemoglobin 26.8 pg (25.0-35.0); Mean Corpuscular Volume 82 fL (80-100); Monocytes # (Auto) 0.7 Thou/mm3 (0.0-0.8); Monocytes % (Auto) 10 % (0-12); Neutrophils # (Auto) 4.6 Thou/mm3 (1.8-7.7); Neutrophils % (Auto) 61 % (37-80); Nucleated Red Blood Cell % 0 /100 WBC (0); Platelet Count 356 Thou/mm3 (140-440); RDW Standard Deviation 37.5 fL (35.1-43.9); Red Blood Count 5.19 Miln/mm3 (4.50-5.90); White Blood Count 7.6 Thou/mm3 (3.8-10.6)
[2024-09-03 14:09] LABS: Alanine Aminotransferase 72 U/L (10-49); Albumin, Serum 4.5 gm/dL (3.5-5.0); Albumin/Globulin Ratio 1.6 (1.2-2.2); Alkaline Phosphatase 69 U/L (46-116); Anion Gap 15 (7-16); Aspartate Amino Transferase 53 U/L (0-34); BUN/Creatinine Ratio 10 Ratio (12-20); Bilirubin,Total 0.2 mg/dL (0.3-1.2); Blood Urea Nitrogen 10 mg/dL (9-23); Carbon Dioxide 26.5 mMol/L (20.0-31.0); Chloride 102 mMol/L (98-107); Globulin 2.9 gm/dL (2.3-3.5); Glucose 92 mg/dL (74-106); Lipase 36 U/L (12-53); Osmolality,Calculated 283 (275-295); Sodium 143 mMol/L (136-145); Total Protein 7.4 gm/dL (5.7-8.2); Troponin I < 0.020 ng/mL (0.0-0.045); eGFR > 60 See Note
[2024-09-03 14:35] VITALS: BP 126/67; PULSE 115; RESP 12; TEMP 36.6; O2SAT 96
--- NOTE | 2024-09-03 14:36 | EKG_ITS ---
[facility] Test Date: 2024-09-03 Pat Name: YOAL SEPINAL Department: Room: - Gender: Male Accounts Payable Coordinator: : 1990 Requested By: ED Temporary Provider Order Number: [id number] Reading MD: ED Temporary Provider Measurements Intervals [place] Rate: 90 P: 50 NH: 135 QRS: 53 QRSD: 109 T: 43 QT: 367 QTc: 451 Interpretive Statements SINUS RHYTHM Compared to ECG 09/03/2024 13:06:25 No significant changes /store/S0/[id number]/ecg/[id number].pdf
[2024-09-03 15:55] VITALS: BP 138/74; PULSE 86; RESP 20; TEMP 36.7; O2SAT 97
--- NOTE | 2024-09-03 16:18 | PD.EDABDPN ---
ED Abdominal Pain RME/HPI General Chief Complaint: Abdominal Pain Stated complaint: ABD. PAIN, CHEST PAIN, VOMITING X AM Time seen by provider: 09/03/24 14:24 Arrival date/time: 09/03/24 12:56 RME / HPI RME / HPI narrative: 34 year old male with history of hypertension presents to the ED for evaluation of substernal chest pressure beginning this morning. States the chest pressure is worse with lying flat, minimally improved with sitting up. Reportedly drank alcohol with friends last night and noted to have drank more than he normally does. Denies epigastric pain. States he had one episode of vomiting earlier today. Denies any nausea or vomiting in the ED. Related Data Home Medications ?Medication ?Instructions ?Recorded ?Confirmed lansoprazole 30 mg capsule,delayed 30 mg PO QDAY 06/06/19 06/06/19 release lisinopril 20 mg tablet 20 mg PO QDAY 06/06/19 06/06/19 Previous Rx's ?Medication ?Instructions ?Recorded ondansetron 4 mg disintegrating 4 mg PO Q8H #14 tabs 05/07/23 tablet meloxicam 7.5 mg tablet 7.5 mg PO QDAY #10 tabs 05/19/24 Allergies Allergy/AdvReac Type Severity Reaction Status Date / Time No Known Allergies Allergy Verified 09/03/24 12:59 Review of Systems Review of Systems Systems Reviewed: All systems reviewed, normal except as documented Past Medical History Past Medical History CARDIAC: Positive Hypertension; Negative Congestive Heart Failure RESPIRATORY: Negative Chronic Obstructive Pulmonary Disease (COPD) GASTROINTESTINAL: Positive Gastroesophageal Reflux Disease GENITOURINARY: Negative Renal Disease ENDOCRINE: Negative Diabetes Mellitus Type 1 or Diabetes Mellitus Type 2 PSYCHO/SOCIAL: Positive Anxiety Family History FAMILY HISTORY: Negative Family Cancer Social History SMOKING STATUS: Never smoker SUBSTANCE USE: does not use ED Exam Narrative Physical exam: GENERAL APPEARANCE: AxOx4, no obvious distress, nontoxic appearing HEENT: NC, AT. MMM. EOMI, clear conjunctiva, oropharynx clear. NECK: Supple without lymphadenopathy. No stiffness or restricted ROM. HEART: Normal rate and regular rhythm, normal S1/S1, no m/r/g LUNGS: CTAB, moving air well. No crackles or wheezes are heard. ABDOMEN: Soft, nontender, nondistended with good bowel sounds heard. BACK: No midline C/T/L spine pain or deformity, No CVAT, no obvious deformity. EXTREMITIES: Without cyanosis, clubbing or edema. MUSCULOSKELETAL: FROM of all major joints, no chest tenderness NEUROLOGICAL: Grossly nonfocal. Alert and oriented, moving all 4 extremities. CN not formally tested but appear grossly intact. Skin: Warm and dry without any rash. Course Quality Measures none Orders Category Date Time Status EKG (ED ONLY) *Do not use* NOW Care 09/03/24 13:00 Completed EKG (ED ONLY) *Do not use* NOW Care 09/03/24 14:36 Completed EKG (ED Only) Stat Exams 09/03/24 13:00 Draft EKG (ED Only) Stat Exams 09/03/24 14:36 Draft XR chest 1V portable Stat Exams 09/03/24 13:04 Completed CBC Stat Lab 09/03/24 13:25 Completed Comprehensive Metabolic Panel Stat Lab 09/03/24 13:25 Completed Lipase Stat Lab 09/03/24 13:25 Completed Troponin I Stat Lab 09/03/24 13:25 Completed Ondansetron Inj [Zofran Inj] Med 09/03/24 13:05 Discontinued 4 mg IVP X1 ONE Sodium Chloride 0.9% 1000 ml [Ns] 1,000 ml Med 09/03/24 13:05 Discontinued IV 999 mls/hr Vital Signs Vital signs: Vital Signs Temperature 97.9 F 09/03/24 13:04 Pulse Rate 116 H 09/03/24 13:04 Respiratory Rate 18 09/03/24 13:04 Blood Pressure 147/84 H 09/03/24 13:04 Pulse Oximetry (%) 99 09/03/24 13:04 Oxygen Delivery Method Room Air 09/03/24 13:04 Pulse ox is 99% on room air which is adequate. Abdominal Pain MDM MDM Narrative MDM Narrative:: Tequila Campbell am scribing for and in the presence of Dr. Landaverde. Patient remains clinically stable throughout the emergency department visit. We reviewed all the results, analysis, and treatment plans. Patient is amenable to discharge. Strict return precautions were outlined. Patient was discharged in stable condition. Patient data External records reviewed:: [facility] previous records (I reviewed ED visit on ) Clinical information provided by:: patient Social determinants that could affect healthcare access:: alcohol use Patient has the following chronic illnesses:: Hypertension How is presenting disease/condition affected by chronic disease/condition?: exacerbated by Evaluation data The following diagnostics were reviewed and interpreted by me:: lab results, radiology exam(s) and EKG tracing(s) (EKG 09/03/2024 @ 13:06. Sinus rhythm, rate 92, WI 139ms, QRS 108ms, QT/QTc 351/401ms, no STEMI. ) Lab and/or radiology exams considered but not ordered:: None Interpretation Summary: Ordering Physician: Desiree WELSH)Wade NP Date of Service: 09/03/24 Procedure(s): XR chest 1V portable Accession Number(s): [id number] cc: Edison Becerril MD; Desiree WELSH)Wade NP; David Acuña MD~ Examination: AP chest single view TECHNIQUE: AP portable semiupright chest single view Date and time: September 03, 2024 1347 hours INDICATIONS: Onset acute chest pain today. FINDINGS: Normal heart size Lungs are clear. The osseous structures are intact IMPRESSION: No active disease Dictated By:David Acuña MD Signed By:<Electronically signed by David Acuña MD in OV>09/03/24 1358 Medications / Prescriptions Medications or Prescriptions considered but not ordered:: None Medication administrations:: Medication Administration History Discontinued Medications Sodium Chloride (Ns) 1,000 mls @ 999 mls/hr IV .Q1H1M ONE Stop: 09/03/24 14:05 Last Infusion: 09/03/24 14:23 Dose: Infused Documented By: Admin: 09/03/24 13:28 Dose: 999 mls/hr Documented By: CORA Ondansetron HCl (Ondansetron Inj 2 Mg/Ml Inj 2 Ml) 4 mg IVP X1 ONE; Protocol Stop: 09/03/24 13:06 Last Admin: 09/03/24 13:28 Dose: 4 mg Documented By: EF See above Consultations Consultation(s) initiated? (list below): No Diagnosis Differential diagnosis abdominal pain: abdominal pain, pancreatitis and other (angina, OK, GERD, gastritis) Most likely diagnosis given after review of the tests above:: Acute alcoholic gastritis Admission Indicated Admission indicated?: not indicated Admission Request Was there a request for admission?: No Disposition Plan Disposition Plan: Discharge Discharge Attestation Discharge Attestation: The patient and all family members were given an opportunity to ask questions and understood the discharge instructions. Discharge instructions specifically effects, indications for sooner follow up or return to the emergency department, and the expected course of current diagnosis. Patient condition: Stable Discharge Plan Plan Patient Disposition: HOME (Self Care) Prescriptions/Referrals Prescriptions/Med Rec: No Action lisinopril 20 mg Tablet 20 mg PO QDAY lansoprazole 30 mg Capsule,Delayed Release(Dr/Ec) 30 mg PO QDAY meloxicam 7.5 mg tablet 7.5 mg PO QDAY Qty: 10 0RF ondansetron 4 mg tablet,disintegrating 4 mg PO Q8H Qty: 14 0RF Referrals: Edison Becerril MD [Primary Care Provider] - In 1 week Problem List Clinical Impression: Acute alcoholic gastritis Patient/Caregiver Discharge Instructions Education Materials: ED Gastritis (Adult) Additional Instructions: Do not drink alcohol in excess, consider stopping alcohol completely for better health. You can follow-up with your primary care doctor and or [facility] if you feel ready for help or support and alcohol and or drug rehabilitation. Print Language: Wolof Stand Alone Forms: Brandie Award Info., Patient Portal Info Letter
[2024-09-03 17:05] VITALS: BP 118/72; PULSE 96; RESP 18; O2SAT 100
== END 2024-09-03 17:06 | disposition home or self-care (01) ==
PROVIDERS: Nurse Practitioner Primary Care; Emergency Provider Emergency Medicine; PCP Student in an Organized Health Care Education/Training Program
DX: K29.20 Alcoholic gastritis without bleeding (principal); R07.9 Chest pain, unspecified; I10 Essential (primary) hypertension
CPT/HCPCS: 36415; 71045; 80053; 83690; 84484; 85025; 93005; 96361; 96374; 99284; J2405; J7030

== ENCOUNTER → 2024-09-11 | Outpatient (CLI) | payer BC, SELFPAY ==
--- NOTE | 2024-09-11 09:30 | XR_ITS ---
Examination: Abdomen sonogram, complete Date and time of exam: September 11, 2024 0943 hours INDICATIONS: Epigastric pain and bloating 7 years. Technique: Multiple real-time grayscale transabdominal sonographic images of the abdomen have been obtained. Findings: Normal gallbladder Normal common bile duct 0.4 cm Pancreatic head 3.2 cm Aorta not enlarged Liver 15 cm fatty infiltration Normal hepatopedal portal venous flow Patent IVC Right kidney 12.3 cm renal cortex 1.7 cm Left kidney 10.4 cm cortex 2.9 cm Spleen 11.7 cm IMPRESSION: Normal gallbladder Normal common bile duct Liver normal size, fatty infiltration
== END | disposition home or self-care (01) ==
PROVIDERS: PCP Student in an Organized Health Care Education/Training Program; Referring Provider Specialist; Visit Provider Specialist
DX: K76.0 Fatty (change of) liver, not elsewhere classified (principal)
CPT/HCPCS: 76700

== ENCOUNTER 2024-10-21 12:45 | Day surgery (SDC) | payer BC, SELFPAY ==
--- NOTE | 2024-10-18 15:56 | EKG_ITS ---
[facility] Test Date: 2024-10-18 Pat Name: YOLA ESPINAL Department: Room: - Gender: Male Communications Coordinator: JERMAN : 1990 Requested By: Rodolfo Escalante Order Number: [id number] Reading MD: Rodolfo Escalante Measurements Intervals [place] Rate: 89 P: 34 SD: 147 QRS: 21 QRSD: 104 T: 31 QT: 355 QTc: 433 Interpretive Statements SINUS RHYTHM Compared to ECG 09/03/2024 14:39:31 No significant changes /store/S0/[id number].pdf
[2024-10-21 11:02] LABS: INR 1.0 (0.9-1.3); Partial Thromboplastin Time 31.0 Seconds (22.0-36.0); Prothrombin Time 10.9 Seconds (9.0-12.2)
[2024-10-21 11:06] LABS: Alanine Aminotransferase 26 U/L (10-49); Albumin, Serum 4.5 gm/dL (3.5-5.0); Albumin/Globulin Ratio 1.4 (1.2-2.2); Alkaline Phosphatase 61 U/L (46-116); Anion Gap 8 (7-16); Aspartate Amino Transferase 20 U/L (0-34); BUN/Creatinine Ratio 13 Ratio (12-20); Bilirubin,Total 0.3 mg/dL (0.3-1.2); Blood Urea Nitrogen 14 mg/dL (9-23); Calcium 9.5 mg/dL (8.3-10.6); Calcium (Corrected) 9.5 mg/dL (8.5-10.1); Carbon Dioxide 28.2 mMol/L (20.0-31.0); Chloride 99 mMol/L (98-107); Creatinine (Component) 1.1 mg/dL (0.6-1.3); Globulin 3.2 gm/dL (2.3-3.5); Glucose 107 mg/dL (74-106); Osmolality,Calculated 270 (275-295); Potassium 4.4 mMol/L (3.4-5.1); Sodium 135 mMol/L (136-145); Total Protein 7.7 gm/dL (5.7-8.2); eGFR > 60 See Note
[2024-10-21 13:31] VITALS: BP 112/71; PULSE 79; RESP 16; TEMP 36.7; O2SAT 98; BMI 40.8
[2024-10-21] MEDS: RINGERS LACTATED 1000 ML 1,000 ML 20 ML IV (14:50)
[2024-10-21] MEDS: BENZOCAINE 20% (Hurricaine) SPRAY 1 DOSE TOP (14:50)
[2024-10-21 14:51] VITALS: BP 128/76; PULSE 75; RESP 18; O2SAT 100
[2024-10-21 15:07] VITALS: BP 126/77; PULSE 66; RESP 20; TEMP 36.6; O2SAT 96
[2024-10-21 15:17] VITALS: BP 119/73; PULSE 67; RESP 21; O2SAT 97
[2024-10-21 15:27] VITALS: BP 139/83; PULSE 70; RESP 19; O2SAT 97
[2024-10-21 15:37] VITALS: BP 131/77; PULSE 72; RESP 20; O2SAT 98
== END 2024-10-21 15:45 | disposition home or self-care (01) ==
PROVIDERS: PCP Physician Assistant; Referring Provider Specialist; Visit Provider Specialist
PROC: (CPT 43239; principal; 2024-10-21 12:45)
DX: K20.90 Esophagitis, unspecified without bleeding (principal); Z01.810 Encounter for preprocedural cardiovascular examination; K29.50 Unspecified chronic gastritis without bleeding; K31.89 Other diseases of stomach and duodenum
CPT/HCPCS: 43239; 36415; 80053; 85610; 85730; 93005; J7120; A9270

== ENCOUNTER → 2024-12-03 | Outpatient (CLI) | payer BC, SELFPAY ==
[2024-12-03 10:38] LABS: Basophils # (Auto) 0.0 Thou/mm3 (0.0-0.2); Basophils % (Auto) 0 % (0-2.5); Eosinophils # (Auto) 0.1 Thou/mm3 (0.0-0.5); Eosinophils % (Auto) 1 % (0-10); Hematocrit 46.3 % (41.0-53.0); Hemoglobin 14.7 g/dL (13.5-16.0); Immature Granulocytes Auto 0.01 Thou/mm3 (0.00-0.00); Lymphocytes # (Auto) 2.5 Thou/mm3 (1.0-4.8); Lymphocytes % (Auto) 31 % (10-50); Mean Corpuscular HGB Conc 31.7 g/dl (31.0-37.0); Mean Corpuscular Hemoglobin 25.9 pg (25.0-35.0); Mean Corpuscular Volume 82 fL (80-100); Monocytes # (Auto) 0.8 Thou/mm3 (0.0-0.8); Monocytes % (Auto) 10 % (0-12); Neutrophils # (Auto) 4.8 Thou/mm3 (1.8-7.7); Neutrophils % (Auto) 59 % (37-80); Nucleated Red Blood Cell # 0.00 Thou/mm3 (0.00-0.00); Nucleated Red Blood Cell % 0 /100 WBC (0); Platelet Count 348 Thou/mm3 (140-440); RDW Standard Deviation 36.7 fL (35.1-43.9); Red Blood Count 5.68 Miln/mm3 (4.50-5.90); White Blood Count 8.2 Thou/mm3 (3.8-10.6)
[2024-12-03 10:43] LABS: Glucose Estimated Average 123 mg/dL (80-131); Hemoglobin A1C 5.9 % Hgb (4.8-6.0)
[2024-12-03 11:12] LABS: Alanine Aminotransferase 35 U/L (10-49); Albumin, Serum 4.6 gm/dL (3.5-5.0); Albumin/Globulin Ratio 1.6 (1.2-2.2); Alkaline Phosphatase 61 U/L (46-116); Anion Gap 11 (7-16); Aspartate Amino Transferase 20 U/L (0-34); BUN/Creatinine Ratio 15 Ratio (12-20); Bilirubin,Total 0.5 mg/dL (0.3-1.2); Blood Urea Nitrogen 16 mg/dL (9-23); Calcium 10.4 mg/dL (8.3-10.6); Calcium (Corrected) 10.4 mg/dL (8.5-10.1); Carbon Dioxide 29.0 mMol/L (20.0-31.0); Cardiac Risk Estimate 5.0 RATIO (4.0-6.7); Chloride 99 mMol/L (98-107); Cholesterol 180 mg/dL (132-200); Creatinine (Component) 1.1 mg/dL (0.6-1.3); Globulin 2.8 gm/dL (2.3-3.5); Glucose 98 mg/dL (74-106); HDL Cholesterol 36 mg/dL (40-60); LDL Cholesterol,Calculated 109 mg/dL (0-130); Osmolality,Calculated 278 (275-295); Potassium 4.7 mMol/L (3.4-5.1); Sodium 139 mMol/L (136-145); Thyroid Stimulating Hormone 1.63 uIU/mL (0.55-4.78); Total Protein 7.4 gm/dL (5.7-8.2); Triglycerides 174 mg/dL (30-150); eGFR > 60 See Note
[2024-12-03 11:13] LABS: Vitamin D 25 Hydroxy Total 21.2 ng/mL (7.3-40.2)
[2024-12-09 09:09] LABS: Testosterone,Total* 308 ng/dL (250-1100)
== END | disposition home or self-care (01) ==
LOC: COPL 09:51
DX: Z00.00 Encounter for general adult medical examination without abnormal findings (principal); Z79.899 Other long term (current) drug therapy
CPT/HCPCS: 36415; 80053; 80061; 82306; 83036; 84403; 84443; 85025

== ENCOUNTER 2025-03-29 13:23 | Emergency (ER) | payer BC, SELFPAY ==
[2025-03-29 13:24] VITALS: BMI 41.5
--- NOTE | 2025-03-29 13:28 | EKG_ITS ---
[facility] Test Date: 2025-03-29 Pat Name: YOLA ESPINAL Department: Room: - Gender: Male Time Clock Repairer: : 1990 Requested By: Beau Arthur Order Number: [id number] Reading MD: Beau Arthur Measurements Intervals [place] Rate: 84 P: 41 MD: 143 QRS: 33 QRSD: 106 T: 30 QT: 351 QTc: 417 Interpretive Statements SINUS RHYTHM Compared to ECG 10/18/2024 16:00:30 No significant changes /store/S0/[id number]/[id number].pdf
[2025-03-29 13:31] VITALS: BP 143/87; PULSE 89; RESP 20; TEMP 36.9; O2SAT 99
--- NOTE | 2025-03-29 13:46 | XR_ITS ---
EXAMINATION: PA lateral chest 2 views Technique when upright PA lateral chest 2 views Date and time: March 29, 2025, 1351 hours, comparison September 03, 2024 INDICATIONS: Nausea vomiting chest pain this morning FINDINGS: Minimal prominence left ventricle No pneumonia or pulmonary edema Intact osseous structures IMPRESSION: No active disease
--- NOTE | 2025-03-29 13:46 | PD.EDCHEST ---
ED Chest Pain RME/HPI General Chief Complaint: Chest Pain Stated Complaint: CHEST PAIN SINCE THIS AM, N/V; ADMITS TO DRINKING Time Seen by Provider: 03/29/25 13:38 Arrival date/time: 03/29/25 13:23 34-year-old male patient with significant history of hypertension, chronic alcoholism, has been drinking all day yesterday and this morning woke up with left-sided chest pain substernal chest pain described as sharp pain, severity moderate. Patient denies any shortness of breath denies any cough denies any other complaints no medication was taken prior to ER visit. Was diagnosed with gastritis however patient is not taking his pantoprazole as prescribed. Related Data Home Medications ?Medication ?Instructions ?Recorded ?Confirmed hydrochlorothiazide 12.5 mg tablet 12.5 mg PO DAILY 10/21/24 10/21/24 lisinopril 40 mg tablet 40 mg PO DAILY 10/21/24 10/21/24 nifedipine 30 mg tablet,extended 30 mg PO DAILY 10/21/24 10/21/24 release pantoprazole 40 mg tablet,delayed 40 mg PO DAILY 10/21/24 10/21/24 release paroxetine HCl 20 mg tablet 20 mg PO DAILY 10/21/24 10/21/24 Previous Rx's ?Medication ?Instructions ?Recorded famotidine 40 mg tablet (Pepcid) 40 mg PO BID #20 tabs 03/29/25 ondansetron HCl 4 mg tablet 4 mg PO Q8H PRN nausea and 03/29/25 vomiting 5 days #20 tabs Allergies Allergy/AdvReac Type Severity Reaction Status Date / Time No Known Allergies Allergy Verified 03/29/25 13:27 Review of Systems Review of Systems Narrative Review of Systems: Review of system reviewed and within normal limits except mentioned in HPI ED Exam Narrative Physical exam: VITAL SIGNS: Reviewed. GENERAL APPEARANCE: Alert and interactive, follows commands, no acute distress, HEAD AND FACE: Non-traumatic. ENT: PERRL, pink conjunctivitis, eyelid no trauma, Mucous membrane moist. NECK: Supple, nontender, no nuchal rigidity. CHEST: No tenderness, no crepitus, no paradoxical movement, no retractions. LUNGS: Clear, well ventilated, symmetric, no rales, no wheezing, no ronchi, no stridor, good breath sounds bilaterally. HEART: Regular rate, regular rhythm, no murmur, no gallops. ABDOMEN: Soft, positive bowel sounds, nondistended, no guarding, nontender, no rebound, no masses, RECTAL: Deferred. GENITAL: Deferred. NEUROLOGICAL: Gross motor function intact sensory function intact, Appropriate for age. MUSCULOSKELETAL: low back nontender, full range of motion. EXTREMITIES: Nontender, full range of motion. SKIN: Color pink, dry, no rash, no lacerations, no abrasions, no contusions. LYMPHATICS: Deferred. Course Quality Measures none Orders Category Date Time Status EKG (ED ONLY) *Do not use* NOW Care 03/29/25 13:28 Completed EKG (ED Only) Stat Exams 03/29/25 13:28 Draft XR chest 1V Stat Exams 03/29/25 13:46 Completed Alcohol, Blood Medical Stat Lab 03/29/25 14:26 Completed CBC [CBC] Stat Lab 03/29/25 14:26 Completed CMP [Comprehensive Metabolic Panel] Stat Lab 03/29/25 14:26 Completed Lipase Stat Lab 03/29/25 14:26 Completed PTT [Partial Thromboplastin Time] Stat Lab 03/29/25 14:26 Completed Troponin I Stat Lab 03/29/25 14:26 Completed Dicyclomine [Bentyl] Med 03/29/25 16:39 Discontinued 20 mg PO X1 ONE Famotidine [Pepcid] Med 03/29/25 13:45 Discontinued 40 mg PO X1 ONE Metoclopramide [Reglan] Med 03/29/25 13:45 Discontinued 10 mg PO X1 ONE Ondansetron Odt [Zofran Odt] Med 03/29/25 16:39 Discontinued 4 mg PO X1 ONE mg Hyd/Al Hyd/Hemalatha Susp [Maalox Susp] Med 03/29/25 16:39 Discontinued 30 ml PO X1 ONE Vital Signs Vital signs: Vital Signs Temperature 98.5 F 03/29/25 13:31 Pulse Rate 89 03/29/25 13:31 Respiratory Rate 20 03/29/25 13:31 Blood Pressure 143/87 H 03/29/25 13:31 Pulse Oximetry (%) 99 03/29/25 13:31 Oxygen Delivery Method Room Air 03/29/25 13:31 Chest Pain MDM Narrative MDM Narrative:: 34-year-old male patient with significant history of hypertension, chronic alcoholism, has been drinking all day yesterday and this morning woke up with left-sided chest pain substernal chest pain described as sharp pain, severity moderate. Patient denies any shortness of breath denies any cough denies any other complaints no medication was taken prior to ER visit. Was diagnosed with gastritis however patient is not taking his pantoprazole as prescribed. EKG showed normal sinus rhythm, no ST segment elevation or depression noted. Laboratory workup all came back unremarkable including troponin which is normal. Repeat troponin is dilated, patient's symptoms started more than 4 hours prior to ER visit. Patient symptoms is probably triggered by drinking a lot of alcohol yesterday. And she is not taking her pantoprazole. Patient was given Maalox Bentyl Pepcid Reglan and Zofran with significant improvement of symptoms patient stable for discharged home advised her to stop or refrain from drinking a lot of alcohol. I personally reviewed and interpreted the x-ray of this patient. There is no acute abnormalities found, no infiltrates no pneumothorax no hemothorax normal chest x-ray. Review of other structures was without significant abnormal findings also. I additionally reviewed the radiologist report and agree with the interpretation. Patient data External records reviewed:: None Clinical information provided by:: patient Social determinants that could affect healthcare access:: alcohol use Patient has the following chronic illnesses:: None How is presenting disease/condition affected by chronic disease/condition?: no chronic disease Evaluation data The following diagnostics were reviewed and interpreted by me:: lab results, radiology exam(s) and EKG tracing(s) Lab and/or radiology exams considered but not ordered:: None Interpretation Summary: See above Medications / Prescriptions Medications or Prescriptions considered but not ordered:: None Medication administrations:: Medication Administration History Discontinued Medications Al Hydrox/Mg Hydrox/Simethicone (Mg Hyd/Al Hyd/Hemalatha (Maalox Reg) Susp 30 Ml Udc) 30 ml PO X1 ONE Stop: 03/29/25 16:40 Dicyclomine HCl (Dicyclomine 10 Mg Capsule) 20 mg PO X1 ONE Stop: 03/29/25 16:40 Famotidine (Famotidine 20 Mg Tablet) 40 mg PO X1 ONE Stop: 03/29/25 13:46 Last Admin: 03/29/25 14:09 Dose: 40 mg Documented By: GM Metoclopramide HCl (Metoclopramide 5 Mg Tablet) 10 mg PO X1 ONE Stop: 03/29/25 13:46 Last Admin: 03/29/25 14:08 Dose: 10 mg Documented By: GM Ondansetron HCl (Ondansetron Odt 4 Mg Tabrap) 4 mg PO X1 ONE; Protocol Stop: 03/29/25 16:40 See above Consultations Consultation(s) initiated? (list below): No Diagnosis Chest Pain Differential Diagnosis: pneumothorax Most likely diagnosis given after review of the tests above:: GERD, causing chest pain Admission Indicated Admission indicated?: not indicated Admission Request Was there a request for admission?: No Disposition Plan Disposition Plan: Discharge Discharge Attestation Discharge Attestation: The patient was given an opportunity to ask questions and understood the discharge instructions. Discharge instructions specifically effects, indications for sooner follow up or return to the emergency department, and the expected course of current diagnosis. Patient condition: Stable Discharge Plan Plan Patient Disposition: HOME (Self Care) Discharge Disposition comment: Stable Prescriptions/Referrals Prescriptions/Med Rec: New famotidine [Pepcid] 40 mg tablet 40 mg PO BID Qty: 20 0RF ondansetron HCl 4 mg tablet 4 mg PO Q8H PRN (Reason: nausea and vomiting) 5 Days Qty: 20 0RF No Action hydrochlorothiazide 12.5 mg tablet 12.5 mg PO DAILY Patient Comments: TAKE 1 TABLET BY MOUTH EVERY DAY nifedipine 30 mg tablet extended release 30 mg PO DAILY Patient Comments: TAKE 1 TABLET BY MOUTH EVERY DAY paroxetine HCl 20 mg tablet 20 mg PO DAILY Patient Comments: TAKE 1 TABLET BY MOUTH EVERY DAY lisinopril 40 mg tablet 40 mg PO DAILY Patient Comments: TAKE 1 TABLET BY MOUTH EVERY DAY pantoprazole 40 mg tablet,delayed release (DR/EC) 40 mg PO DAILY Patient Comments: TAKE 1 TABLET BY MOUTH EVERY DAY Referrals: Anders Patino FNP [Primary Care Provider] - In 1 week Problem List Clinical Impression: Chest pain due to GERD Patient/Caregiver Discharge Instructions Discharge Activity: activity as tolerated Education Materials: ED GERD (Adult) Additional Instructions: Thank you for the opportunity for serving you today. You are stable for discharged . You are advised to: Follow-up with your PCP in 1 to 2 days Return to ED for worsening of symptoms Increase oral fluids Take medication as prescribed Print Language: Australian Stand Alone Forms: Brandie Award Info., Patient Portal Info Letter
[2025-03-29] MEDS: METOCLOPRAMIDE 5 MG TABLET 10 MG PO (14:08)
[2025-03-29] MEDS: FAMOTIDINE 20 MG TABLET 40 MG PO (14:09)
[2025-03-29 14:53] LABS: Basophils # (Auto) 0.0 Thou/mm3 (0.0-0.2); Basophils % (Auto) 0 % (0-2.5); Eosinophils # (Auto) 0.0 Thou/mm3 (0.0-0.5); Eosinophils % (Auto) 0 % (0-10); Hematocrit 42.9 % (41.0-53.0); Hemoglobin 13.9 g/dL (13.5-16.0); Immature Granulocytes Auto 0.02 Thou/mm3 (0.00-0.00); Lymphocytes # (Auto) 2.4 Thou/mm3 (1.0-4.8); Lymphocytes % (Auto) 26 % (10-50); Mean Corpuscular HGB Conc 32.4 g/dl (31.0-37.0); Mean Corpuscular Hemoglobin 26.1 pg (25.0-35.0); Mean Corpuscular Volume 81 fL (80-100); Monocytes # (Auto) 0.5 Thou/mm3 (0.0-0.8); Monocytes % (Auto) 6 % (0-12); Neutrophils # (Auto) 6.1 Thou/mm3 (1.8-7.7); Neutrophils % (Auto) 68 % (37-80); Nucleated Red Blood Cell # 0.00 Thou/mm3 (0.00-0.00); Nucleated Red Blood Cell % 0 /100 WBC (0); Platelet Count 367 Thou/mm3 (140-440); RDW Standard Deviation 37.7 fL (35.1-43.9); Red Blood Count 5.32 Miln/mm3 (4.50-5.90); White Blood Count 9.0 Thou/mm3 (3.8-10.6)
[2025-03-29 15:00] LABS: Partial Thromboplastin Time 29.5 Seconds (22.0-36.0)
[2025-03-29 15:05] LABS: Alanine Aminotransferase 42 U/L (10-49); Albumin, Serum 4.6 gm/dL (3.5-5.0); Albumin/Globulin Ratio 1.4 (1.2-2.2); Alcohol, Blood Medical < 3.0 mg/dL (0-10.0); Alkaline Phosphatase 64 U/L (46-116); Anion Gap 10 (7-16); Aspartate Amino Transferase 24 U/L (0-34); BUN/Creatinine Ratio 8 Ratio (12-20); Bilirubin,Total 0.3 mg/dL (0.3-1.2); Blood Urea Nitrogen 9 mg/dL (9-23); Calcium 9.4 mg/dL (8.3-10.6); Calcium (Corrected) 9.4 mg/dL (8.5-10.1); Carbon Dioxide 27.2 mMol/L (20.0-31.0); Chloride 103 mMol/L (98-107); Creatinine (Component) 1.1 mg/dL (0.6-1.3); Estimated Creatinine Clearance 127.8 mL/min (>60); Globulin 3.4 gm/dL (2.3-3.5); Glucose 108 mg/dL (74-106); Lipase 31 U/L (12-53); Osmolality,Calculated 279 (275-295); Potassium 5.2 mMol/L (3.4-5.1); Sodium 140 mMol/L (136-145); Total Protein 8.0 gm/dL (5.7-8.2); Troponin I < 0.020 ng/mL (0.0-0.045); eGFR > 60 See Note
[2025-03-29] MEDS: DICYCLOMINE 10 MG CAPSULE 20 MG PO (16:50)
[2025-03-29] MEDS: ONDANSETRON ODT 4 MG TABRAP PO (16:51)
[2025-03-29] MEDS: MG HYD/AL HYD/SIME (Maalox Reg) SUSP 30 ML UDC PO (16:51)
== END 2025-03-29 17:00 | disposition home or self-care (01) ==
PROVIDERS: Nurse Practitioner Family; Emergency Provider Emergency Medicine
DX: K21.9 Gastro-esophageal reflux disease without esophagitis (principal); R07.2 Precordial pain; I10 Essential (primary) hypertension
CPT/HCPCS: 36415; 71045; 80053; 80320; 83690; 84484; 85025; 85730; 93005; 99283; Q0162; A9270; G0480